=== PATIENT | male | born 1990 | race Asian ===

== ENCOUNTER 2021-07-06 20:29 | Emergency (ER) | payer SELFPAY ==
[~2021-07-06] VITALS: Ht 177.8 cm; Wt 86.2 kg
--- NOTE | 2021-07-06 21:00 | NUR ---
PT CAME IN C/O RIGHT TESTICLE PAIN 09/16 STATING STARTED YESTERDAY AND DID NOT GO AWAY. PT IS A/O X4. PT PLACED ON MONITOR.VSS
[2021-07-06 21:46] LABS: BILIRUBIN,URINE NEGATIVE (NEGATIVE); COLOR,URINE YELLOW (YELLOW); LEUKOCYTE ESTERASE ,URINE NEGATIVE (NEGATIVE); NITRITE, URINE NEGATIVE (NEGATIVE); PROTEIN,URINE NEGATIVE (NEGATIVE); UGLUCOSE NEGATIVE (NEGATIVE); UROBILINOGEN,URINE 0.2 EU/dL (0.2)
[2021-07-06] MEDS ORDERED: DOXY-326 PO (22:55)
[2021-07-06] MEDS ORDERED: CEFTRIAXONE 500 MG VIAL ONE (22:57)
[2021-07-06] MEDS ORDERED: CEFTRIAXONE 500 MG VIAL IM ONE (23:00)
[2021-07-06] MEDS ORDERED: LIDOCAINE /MPF 1% VIAL 5 ML VIAL ONE (23:00)
[2021-07-06 23:15] VITALS: BP 128/79
--- NOTE | 2021-07-06 23:16 | NUR ---
Patient discharged to home in stable condition. Written and verbal after care instructions given. Patient verbalizes understanding of instruction.
== END 2021-07-06 23:16 | disposition home or self-care (01) ==
LOC: ER 20:32
DX: N45.1 Epididymitis (principal)
CPT/HCPCS: 76870; 81003; 96372; 99284; J0696; J3490